=== PATIENT | male | born 2000 | race Caucasian/White ===

== ENCOUNTER 2022-03-27 20:35 | Emergency (ER) | payer OTHER, SELFPAY ==
--- NOTE | ~2022-03-27 | XR_ITS ---
EXAMINATION: 1. RADIOGRAPHS RIGHT ELBOW 2. RADIOGRAPHS RIGHT HAND CLINICAL INFORMATION: Pain COMPARISON: None TECHNIQUE: 3 views of the right elbow and 3 views of the right hand were obtained FINDINGS: Right elbow: No fracture or dislocation. No joint effusion. No appreciable degenerative changes. No focal soft tissue swelling. No radiopaque foreign body. Right hand: Visualized portion of the distal radius and ulna demonstrate no fracture. Carpal rows are maintained. No carpal bone fracture. No metacarpal fracture. No gross phalangeal fracture, however, there does appear to be subtle cortical irregularity involving the third middle phalanx noted on lateral imaging, nonspecific. No appreciable degenerative changes. No focal soft tissue swelling of the hand. No radiopaque foreign body. XR/XR elbow RT 2V IMPRESSION: 1. Unremarkable radiographs of the right elbow. 2. Subtle cortical irregularity involving the third middle phalanx noted on lateral imaging. This is a nonspecific finding, however, a nondisplaced fracture is not excluded. Follow-up radiographs can be obtained in 7-10 days to evaluate for callus formation.
--- NOTE | ~2022-03-27 | XR_ITS ---
EXAMINATION: 1. RADIOGRAPHS RIGHT ELBOW 2. RADIOGRAPHS RIGHT HAND CLINICAL INFORMATION: Pain COMPARISON: None TECHNIQUE: 3 views of the right elbow and 3 views of the right hand were obtained FINDINGS: Right elbow: No fracture or dislocation. No joint effusion. No appreciable degenerative changes. No focal soft tissue swelling. No radiopaque foreign body. Right hand: Visualized portion of the distal radius and ulna demonstrate no fracture. Carpal rows are maintained. No carpal bone fracture. No metacarpal fracture. No gross phalangeal fracture, however, there does appear to be subtle cortical irregularity involving the third middle phalanx noted on lateral imaging, nonspecific. No appreciable degenerative changes. No focal soft tissue swelling of the hand. No radiopaque foreign body. XR/XR hand RT 2V IMPRESSION: 1. Unremarkable radiographs of the right elbow. 2. Subtle cortical irregularity involving the third middle phalanx noted on lateral imaging. This is a nonspecific finding, however, a nondisplaced fracture is not excluded. Follow-up radiographs can be obtained in 7-10 days to evaluate for callus formation.
--- NOTE | ~2022-03-27 | XR_ITS ---
EXAMINATION: THORACIC SPINE, LUMBAR SPINE CLINICAL INFORMATION: Fall from ladder COMPARISON: None TECHNIQUE: 3 views thoracic spine, 3 views lumbar spine FINDINGS: Thoracic spine: The thoracic spine appears unremarkable. No fractures are seen. The paraspinal soft tissue lines appear normal. No fractures are seen in the remainder of the visualized bony thorax. Lumbar spine: Disc spaces and vertebral body heights are maintained. No fractures or bony destructive lesions are seen. XR/XR thoracic spine 2V IMPRESSION: No evidence of traumatic injury.
--- NOTE | ~2022-03-27 | XR_ITS ---
EXAMINATION: THORACIC SPINE, LUMBAR SPINE CLINICAL INFORMATION: Fall from ladder COMPARISON: None TECHNIQUE: 3 views thoracic spine, 3 views lumbar spine FINDINGS: Thoracic spine: The thoracic spine appears unremarkable. No fractures are seen. The paraspinal soft tissue lines appear normal. No fractures are seen in the remainder of the visualized bony thorax. Lumbar spine: Disc spaces and vertebral body heights are maintained. No fractures or bony destructive lesions are seen. XR/XR lumbar spine 2-3V IMPRESSION: No evidence of traumatic injury.
[2022-03-27 21:25] VITALS: BP 132/63; PULSE 73; RESP 16; TEMP 36.7; O2SAT 95; BMI 33.5
--- NOTE | 2022-03-27 23:48 | ED.FALL ---
HPI - Fall General Chief Complaint: Wound/Laceration Stated Complaint: right finger laceration,fell off ladder work inj Source: patient Mode of arrival: ambulatory Limitations: no limitations History of Present Illness HPI Narrative: 21-year-old male came in for evaluation after falling. 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 Patient is complaining of right hand/right elbow pain with no deformity. Patient also is sustaining a cut in his 3rd middle right finger. Related Data Allergies Allergy/AdvReac Type Severity Reaction Status Date / Time No Known Allergies Allergy Verified 03/27/22 23:42 Review of Systems Review of Systems: All other systems are reviewed and are negative Constitutional: Reports as per HPI and Reports no additional constitutional complaints Eyes: Reports as per HPI and Reports no additional eye complaints Reports system reviewed and no additional complaints, except as documented Cardiovascular: Reports as per HPI and Reports no additional cardiovascular complaints Respiratory: Reports as per HPI and Reports no additional respiratory complaints Gastrointestinal: Reports as per HPI and Reports no additional gastrointestinal complaints Genitourinary: Reports no additional female genitourinary complaints Musculoskeletal: Reports no additional musculoskeletal complaints Skin/Breast: Reports system reviewed and no additional complaints, except as docu Psychiatric: Reports no additional psychiatric complaints Endocrine: Reports no additional endocrine complaints Hematologic/Lymphatic: Reports no additional hematologic/lymphatic complaints Allergic/Immunologic: Reports no additional allergic/immunologic complaints Reports system reviewed and no additional complaints, except as documented and Reports Abnormal speech present [facility] Social History Social History Advance Directives: No Physical Exam Vital Signs: Vital Signs: Last Vital Signs Temp 98.2 F 03/28/22 00:00 Pulse 64 03/28/22 00:00 Resp 16 03/28/22 00:00 BP 120/70 03/28/22 00:00 Pulse Ox 98 03/28/22 00:00 O2 Del Method 03/28/22 00:00 BMI result Body Mass Index 33.5 Vital signs have been reviewed as appeared to be correct. Blood pressure normal. Heart rate normal. Respiration rate normal. Temperature normal. Oxygen saturation normal. Appearance: Alert. Oriented X3. No acute distress. Head: Normal external exam. Normocephalic. Atraumatic. No Christine signs noted. No raccoon eyes noted Eyes: PERRLA. EOMI. Conjunctiva and sclera normal. Eyelids normal. ENT: TM's Normal. Pharynx normal. Uvula midline. Moist mucous membranes. No trismus noted. No drooling noted. No muffled voice noted. Neck: Normal inspection. Neck supple. FROM. No adenopathy. Thyroid Normal. No meningeal signs. No neck mass noted. CVS: Normal heart rate and rhythm. Heart sound normal. No murmurs noted. Pulses normal throughout. Respiratory: No respiratory distress. Painless inspiration. Breath sounds normal. No wheezes/rales/rhonchi noted. Chest nontender. No accessory muscle usage noted or decreased air movement noted. Abdomen: Soft and nontender. Bowel sounds normal in all 4 quadrants. No distention noted. No organomegaly noted. No visible injury noted. Back: No CVA tenderness. Full range of motion noted. Skin: Skin warm and dry. Normal skin color. Normal skin turgor. No rashes/lesions/lacerations noted. Extremities: Right elbow tenderness with no deformity or step-off with full range of motion with slight pain, right hand exam showed 3 cm horizontal laceration on the proximal phalanx of the right middle finger. Otherwise neurovascularly intact. Neuro: Oriented X 3. Cranial nerve exam: II-XII are grossly intact No motor deficit. No sensory deficit. Reflexes normal. Course Course Course Narrative: Status post work related injury fell off of a 5 ft ladder, negative x-ray for acute injuries, no neurological deficit, able to ambulate in the emergency department. Negative x-rays. No indication of intra-abdominal injury. Patient was instructed to keep the wound dry and clean. Medications Administered Discontinued Medications Generic Name Dose Route Start Last Admin Trade Name Freq PRN Reason Stop Dose Admin Diphtheria/Tetanus/Acell Pertussis 0.5 ml 03/27/22 23:43 03/28/22 00:17 Diphth,Pertus(Acell),Tet Adult 0.5 Ml Syringe IM 03/27/22 23:44 0.5 ml .ONCE ONE Administration Lidocaine HCl 20 ml 12/05/22 23:42 03/28/22 00:17 Lidocaine Hcl 1 % 20 Ml Vial SUBCUT 03/27/22 23:43 20 ml ONCE ONE Administration Procedures Laceration Laceration 1: Site: hand (Right middle finger) Size (cm): 4 Description: linear Depth: simple, single layer Local Anesthetic: lidocaine 1% Amount of anesthesia used (mL): 7 Pre-repair: wound explored and irrigated extensively Skin layer closed with: nylon Size (cm): 5-0 Number of sutures: 10 Technique: simple, interrupted Medical Decision Making Medical Decision Making Differential Diagnoses: Differential diagnosis Differential Diagnosis: The differential diagnosis associated with the patient?s presentation includes: Vertebral fracture/elbow fracture/contusion/laceration repair. Independent interpretation of EKG, rhythm strip, radiology study: Independent interp EKG,rhythm strip, radiology study I performed an independent interpretation of the: Plain X-Ray (Thoracic/lumbar/right hand/right elbow x-ray) My interpretation is no acute fracture or dislocation Discharge Plan Discharge Clinical Impression: Laceration of hand, right, Back contusion Patient Disposition: Home, Self-Care Instructions: Laceration (ED), Contusion in Adults (ED) Additional Instructions: Return to the ED or urgent care for suture removal in 7-10 days. Keep the suture dry and clean to avoid infection. Referrals: Physician,None [Primary Care Provider] - Stand Alone Forms: Work/School Release
[2022-03-28] VITALS: BP 120/70; PULSE 64; RESP 16; TEMP 36.8; O2SAT 98
[2022-03-28] MEDS: Diphth,Pertus(ACell),Tet Adult 0.5 ML SYRINGE IM (00:17)
[2022-03-28] MEDS: Lidocaine HCl 1 % 20 ML VIAL SUBCUT (00:17)
[2022-03-28 01:44] LABS: Appearance Urine Clear; Color Urine Yellow; Glucose Urine UA Negative (Negative); Leukocyte Esterase Urine Negative (Negative); Nitrite Urine Negative (Negative); PH 5.5 (5.0-9.0); Specific Gravity - Urine 1.025 (1.005-1.025); Urine Blood Negative (Negative); Urine Ketones Trace mg/dL (Negative); Urine Protein Negative (Neg-Trace)
== END 2022-03-28 01:46 | disposition home or self-care (01) ==
PROVIDERS: Emergency Provider Emergency Medicine
DX: S61.212A Laceration without foreign body of right middle finger without damage to nail, initial encounter (principal); S40.811A Abrasion of right upper arm, initial encounter; M54.50 Low back pain, unspecified; M54.6 Pain in thoracic spine; R51.9 Headache, unspecified; M54.2 Cervicalgia; Y28.9XXA Contact with unspecified sharp object, undetermined intent, initial encounter; Y93.9 Activity, unspecified; Y92.009 Unspecified place in unspecified non-institutional (private) residence as the place of occurrence of the external cause; Y99.9 Unspecified external cause status
CPT/HCPCS: 12002; 72070; 72100; 73070; 73120; 81003; 90471; 90715; 99283; 99284